=== PATIENT | male | born 1990 | race Hispanic/Latino ===

== ENCOUNTER 2017-10-19 08:00 | Outpatient (AMBR) | payer BC, SELFPAY ==
--- NOTE | 2017-10-09 12:24 | PTNOTE_ITS ---
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 Pt mention that his pain (8/10) is intermittent. Pt recent xray showed a mild form of scoliosis. 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 Objective T/S AROM: all motions are WFL but pain with end range extension and right side bend Scapula MMTs: grossly 3+/5 Palpation: TTP and increase paraspinal musculature T5 to T9 left side L/S AROM: all motions are WFL Assessment Pt demonstrate mid back pain with increase L paraspinal musculature tone secondary to overuse from work and ADLs. Pt will attempt physical therapy if pain persist Pt will be refer back to PCP Short Term and Penitentiary Goals 1) Decrease mid back pain to 2/10 in 6 wks to be able to work longer duration at work with less pain 2) Increase T/S core WNL in 6 wks to be able to perform lifting activities 3) Increase T/S AROM WNL in 6 wks to be able to perform chores with less limitation 4) Indep with HEP Treatment Plan 1) Manual Therapy 2) Therapeutic Exercises 3) Therapeutic Activities 4) Modalities (ice, heat, e-stim) Frequency and Duration 2 x wk for 6 wks Certification Dates: 10/09/17 to 01/09/18 Office Procedures PT Procedures PT Date of Service: 10/09/17 OP PT Eval Mod Complex 30 minutes: Yes
--- NOTE | 2017-10-12 14:57 | PT.ODAYNRPT ---
PT Outpatient Daily Note Date of Service: October 12, 2017 OP Daily Note Visit Reasons: low back pain Outpatient Physical Therapy Treatment Date: 10/12/17 Subjective: Pt's back feels okay. Pt mention that he still feels a little sore. Objective: Please see flow chart for list of ther ex performed Assessment: decrease mid back pain after STM and therapy session. Plan: Continue with PT Length of Time (minutes) of Treatment: 30 Minutes Office Procedures PT Procedures PT Date of Service: 10/09/17 OP PT Eval Mod Complex 30 minutes: Yes PT Procedures PT Date of Service: 10/12/17 Therapeutic Exercise 15 minutes: Yes Manual Poultry Hatchery Laborer 15 minutes: Yes
--- NOTE | 2017-10-16 09:03 | PT.ODAYNRPT ---
PT Outpatient Daily Note Date of Service: October 16, 2017 OP Daily Note Visit Reasons: low back pain Outpatient Physical Therapy Treatment Date: 10/16/17 Subjective: Pt's back felt a little better after last treatment session. Pt went back to work and seems to aggravate it again. Objective: Please see flow chart for list of ther ex performed Assessment: upon assessment; Pt's left paraspinal tension is less compared to previous visit. Pt's back pain decrease after therapy session. Plan: Continue with PT Length of Time (minutes) of Treatment: 30 Minutes Office Procedures PT Procedures PT Date of Service: 10/09/17 OP PT Eval Mod Complex 30 minutes: Yes PT Procedures PT Date of Service: 10/12/17 Therapeutic Exercise 15 minutes: Yes Manual Optical Technician 15 minutes: Yes PT Procedures PT Date of Service: 10/16/17 Therapeutic Exercise 15 minutes: Yes Manual Optical Technician 15 minutes: Yes
--- NOTE | 2017-10-19 08:51 | PTNOTE_ITS ---
PT Outpatient Daily Note Date of Service: October 19, 2017 OP Daily Note Visit Reasons: low back pain Outpatient Physical Therapy Treatment Date: 10/19/17 Subjective: Pt's back is feeling better. Pt working longer with less back pain. Pt notice that he slouch with sitting. Objective: Please see flow chart for list of ther ex performed Assessment: educated to not slouch and sit with more neutral spine to decrease paraspinal muscle tone. decrease tone noted upon assessment. Plan: Continue with PT Length of Time (minutes) of Treatment: 30 Minutes Office Procedures PT Procedures PT Date of Service: 10/09/17 OP PT Eval Mod Complex 30 minutes: Yes PT Procedures PT Date of Service: 10/12/17 Therapeutic Exercise 15 minutes: Yes Manual Life Skills Instructor 15 minutes: Yes PT Procedures PT Date of Service: 10/19/17 Therapeutic Exercise 15 minutes: Yes Manual Life Skills Instructor 15 minutes: Yes PT Procedures PT Date of Service: 10/16/17 Therapeutic Exercise 15 minutes: Yes Manual Life Skills Instructor 15 minutes: Yes
== END 2017-10-19 23:59 | disposition home or self-care (01) ==
PROVIDERS: Family Provider Surgery; PCP Chiropractor; Referring Provider Chiropractor; Visit Provider Family Medicine
DX: M54.5 Low back pain (principal); M54.6 Pain in thoracic spine; G89.29 Other chronic pain; M41.9 Scoliosis, unspecified
CPT/HCPCS: 97110; 97140; 97162

== ENCOUNTER 2017-11-23 09:00 | Outpatient (AMBR) | payer BC, SELFPAY ==
--- NOTE | 2017-11-20 09:29 | PT.ODAYNRPT ---
PT Outpatient Daily Note Date of Service: November 20, 2017 OP Daily Note Visit Reasons: low back Outpatient Physical Therapy Treatment Date: 11/20/17 Subjective: Pt mention that his back feels good. Pt working with less pain. Pt can now sleep on his back with less pain. Objective: Please see flow chart for list of ther ex performed Assessment: tolerate exercises performed with minimal back pain. review all theraband thoracic core exercises with good demonstration Plan: Continue with PT Length of Time (minutes) of Treatment: 45 Minutes Office Procedures PT Procedures PT Date of Service: 11/20/17 Therapeutic Exercise 45 minutes: Yes
--- NOTE | 2017-11-23 09:38 | PT.ODS1RPT ---
PT OP Progress/Discharge Note Date of Service: November 23, 2017 Progress Note/DC Note Progress Note/Discharge Note: DC Note Patient Information Visit Reasons: low back Medical Diagnosis: M54.5 Treatment Dx #1: Mid Back Pain Treatment Dx #2: Mid Back Pain Service Continue Service or Discharge: Discharge Discharge Date: 11/23/17 Status Subjective: Pt's back feels much better. Pt has been able to work longer with less mid back pain. Pt mention that he started his work out routine and it seems to also be helping his back ache. Pt feels comfortable with what was taught as exercises in therapy and feels comfortable being release from PT. Objective: T/S AROM: all motions are WNL Scapula MMTs: grossly 4/5 Palpation: no TTP paraspinal musculature L/S AROM: all motions are WNL Assessment: Pt demonstrate normal spinal mobility and thoracic core strength allowing him to resume ADLs, work duties, and recreational activities with minimal limitation. Pt will no longer benefit from physical therapy due to meeting all set goals. Pt was instructed on HEP last session to continue to manage his mid back pain. Pt performed all exercises safely, thank you for your referrals. Plan: D/C home with HEP and follow up with MD MENCHACA Office Procedures PT Procedures PT Date of Service: 11/23/17 Therapeutic Exercise 30 minutes: Yes PT Procedures PT Date of Service: 11/20/17 Therapeutic Exercise 45 minutes: Yes
== END 2017-12-19 23:59 | disposition home or self-care (01) ==
PROVIDERS: Family Provider Surgery; PCP Chiropractor; Referring Provider Chiropractor; Visit Provider Chiropractor
DX: M54.5 Low back pain (principal); M54.6 Pain in thoracic spine; G89.29 Other chronic pain
CPT/HCPCS: 97110

== ENCOUNTER 2019-12-15 09:35 | Outpatient (AMBR) | payer BC, SELFPAY ==
--- NOTE | 2019-11-25 10:58 | PT.OIERPT ---
PT OP Initial Eval Patient Information Visit Reasons: left shoulder Medical Diagnosis: M25.512 Treatment Dx #1: Left Shoulder Pain Treatment Dx #2: Left Shoulder Weakness Start of Care: 11/25/19 Date of Onset: 1 year ago Initial Assessment Subjective Pt is a 29 y/o male c/o chronic left shoulder pain (10/29) started 1 year ago. Pt denies of trauma or injury to the shoulder. No xray or MRI has been done thus far. Pt mention that he went down to [place] in January and had a MRI done which showed a inflammed supraspinatus . Pt also notice the shoulder dropping with excessive popping/clicking. Pt has limitation with chores, work duties, self care, overhead motions, lifting, taking care of his baby, recreational activities, and reaching behind his back. Objective C/S AROM: all motions are WFL with stretching pain right side bending and right rotation Left Shoulder AROM: all motions are WFL with end range pain in flexion and abduction Left Shoulder MMTs Flexors: 4-/5 Abductors: 3+/5 Internal Rotators: 4-/5 External Rotators: 3/5 Left Scapula MMTs: grossly 3-/5 Palpation: TTP long head of biceps, supraspinatus muscle belly, superior and mid portion of upper trape Special Test (+) grind test (+) palmer's test Assessment Pt demonstrate left shoulder pain and instability consistent with possible labral lesion leading to decline function. Pt will attempt physical therapy if pain persist Pt will be refer back to provider for further consultation. Short Term and Retirement Goals 1) Increase left shoulder AROM WNL in 6 wks to be able to perform overhead motions 2) Increase left shoulder MMTs grossly to 4/5 in 6 wks to be able to perform work duties 3) Decrease shoulder pain to 2/10 in 6 wks to be able to perform lifting activities 4) Increase left scapula MMTs grossly to 4-/5 in 6 wks to be able to perform chores 5) Indep with HEP Treatment Plan 1) Manual Therapy 2) Therapeutic Activities 3) Therapeutic Exercises 4) Modalities (ice, heat) Frequency and Duration 2 x wk for 6 wks Certification Dates: 11/25/19 to 02/25/20 Office Procedures PT Procedures PT Date of Service: 10/06/20 OP PT Eval Mod Complex 30 minutes: Yes
--- NOTE | 2019-11-28 10:02 | PT.ODAYNRPT ---
PT Outpatient Daily Note Date of Service: 11/28/19 OP Daily Note Visit Reasons: left shoulder Outpatient Physical Therapy Treatment Date: 11/28/19 Subjective: Pt's shoulder is the same. Pt feels that his whole left arm is . Pt further mention that neck feels unstable. Pt saw his PCP yesterday and plans on getting a shoulder MRI Objective: Please see flow chart for list of ther ex performed Assessment: Pt educated that most likely neck pain is secondary pain to the shoulder due to compensatory movement. Pt performed all exercises with minimal difficulty, slight pain with punches and shoulder ER. post ice help decrease pain and soreness Plan: Continue with PT Length of Time (minutes) of Treatment: 30 Minutes Office Procedures PT Procedures PT Date of Service: 11/25/19 OP PT Eval Mod Complex 30 minutes: Yes PT Procedures PT Date of Service: 11/28/19 Therapeutic Exercise 30 minutes: Yes
--- NOTE | 2019-12-02 12:53 | PT.ODAYNRPT ---
PT Outpatient Daily Note Date of Service: 12/02/19 OP Daily Note Visit Reasons: left shoulder Outpatient Physical Therapy Treatment Date: 12/02/19 Subjective: Pt's shoulder is better. Pt is taking valium and makes him feel drunk. Pt is taking meds 3x day and feels that it's helping. Pt is concern if he stop taking meds his shoulder pain may hurt. Pt's also been off work which help the shoulder pain Objective: Please see flow chart for list of ther ex performed Assessment: Pt instructed to consult with pcp regarding meds and appropriate intake. Pt tolerate all exercises performed today Plan: Continue with PT Length of Time (minutes) of Treatment: 30 Minutes Office Procedures PT Procedures PT Date of Service: 11/25/19 OP PT Eval Mod Complex 30 minutes: Yes PT Procedures PT Date of Service: 11/28/19 Therapeutic Exercise 30 minutes: Yes PT Procedures PT Date of Service: 12/02/19 Therapeutic Exercise 30 minutes: Yes
--- NOTE | 2019-12-05 10:19 | PT.ODAYNRPT ---
PT Outpatient Daily Note Date of Service: 12/05/19 OP Daily Note Visit Reasons: left shoulder Outpatient Physical Therapy Treatment Date: 12/05/19 Subjective: Pt's shoulder is a little better. Pt saw his provider yesterday and extended work for another 4 weeks. Pt mention that provider doesn't want to order an MRI due to him feeling better. Pt is concerns about work and is not ready to return Objective: Please see flow chart for list of ther ex performed Assessment: tolerate exercises with minimal pain; cues to rest as needed after each session. Post ice help decrease soreness and pain Plan: Continue with PT Length of Time (minutes) of Treatment: 30 Minutes Office Procedures PT Procedures PT Date of Service: 11/25/19 OP PT Eval Mod Complex 30 minutes: Yes PT Procedures PT Date of Service: 11/28/19 Therapeutic Exercise 30 minutes: Yes PT Procedures PT Date of Service: 12/02/19 Therapeutic Exercise 30 minutes: Yes PT Procedures PT Date of Service: 12/05/19 Therapeutic Exercise 30 minutes: Yes
--- NOTE | 2019-12-09 14:34 | PT.ODAYNRPT ---
PT Outpatient Daily Note Date of Service: 12/09/2019 OP Daily Note Visit Reasons: left shoulder Outpatient Physical Therapy Treatment Date: 12/09/19 Subjective: pt states his shoulder is feeling better. Objective: see flow sheet. Assessment: pt demonstrates good understanding of the exercises as he is able to control each rep with having good posture. he did not need cuing to correct any exercise. he denied increase in pain. no complaints during or after treatment. no compensations noted during any exercises as he is fully engaging the shoulder joint. ice pack pos ther ex in supine per pt request. Plan: continue POC per PT. Length of Time (minutes) of Treatment: 30 Minutes Office Procedures PT Procedures PT Date of Service: 11/25/19 OP PT Eval Mod Complex 30 minutes: Yes PT Procedures PT Date of Service: 12/09/19 Therapeutic Exercise 30 minutes: Yes PT Procedures PT Date of Service: 11/28/19 Therapeutic Exercise 30 minutes: Yes PT Procedures PT Date of Service: 12/02/19 Therapeutic Exercise 30 minutes: Yes PT Procedures PT Date of Service: 12/05/19 Therapeutic Exercise 30 minutes: Yes
--- NOTE | 2019-12-15 09:51 | PT.ODS1RPT ---
PT OP Progress/Discharge Note Date of Service: 12/15/19 Progress Note/DC Note Progress Note/Discharge Note: DC Note Patient Information Visit Reasons: left shoulder Medical Diagnosis: M25.512 Treatment Dx #1: Left Shoulder Pain Service Continue Service or Discharge: Discharge Discharge Date: 12/15/19 Status Subjective: Pt stated that his left shoulder was doing well past few sessions, however, he's unsure if he slept wrong due to now it's hurting again. Pt continues to report of intermittent popping/clicking with pain (08/28). Pt has limitation with excessive overhead motions, taking care of his baby, lifting, reaching behind his back, and recreational activities. Pt further mention that he's been off work for 6 weeks and still his shoulder is not better which he is getting concern. Pt will follow up with provider after today's session. Objective: Left Shoulder AROM: all motions are WNL with pain at end range flexion and abduction Left Shoulder MMTs: grossly 4-/5 Left Scapula MMTs: grossly 3+/5 Palpation: TTP long head of biceps and supraspinatus muscle belly Special Test (+) grind test (+) active palmer's test Assessment: Pt demonstrate functional ROM and strength, however, continues to report of anterior and and anterior lateral shoulder pain leading to difficulty with ADLs. Pt will no longer benefit from physical therapy due to plateau towards goals. Pt was instructed on HEP last session and advised to follow up with provider for further consultation. Pt performed all HEP safely on his last session, thank you for your referrals. Plan: D/C home with HEP and follow up with provider Office Procedures PT Procedures PT Date of Service: 11/25/19 OP PT Eval Mod Complex 30 minutes: Yes PT Procedures PT Date of Service: 12/09/19 Therapeutic Exercise 30 minutes: Yes PT Procedures PT Date of Service: 12/15/19 Therapeutic Exercise 15 minutes: Yes Self Care/Home Mgmt 15 minutes: Yes PT Procedures PT Date of Service: 11/28/19 Therapeutic Exercise 30 minutes: Yes PT Procedures PT Date of Service: 12/02/19 Therapeutic Exercise 30 minutes: Yes PT Procedures PT Date of Service: 12/05/19 Therapeutic Exercise 30 minutes: Yes
== END 2019-12-15 09:48 | disposition home or self-care (01) ==
PROVIDERS: PCP Nurse Practitioner Family; Referring Provider Nurse Practitioner Family; Visit Provider Nurse Practitioner Family
DX: M25.512 Pain in left shoulder (principal); R53.1 Weakness; G89.29 Other chronic pain
CPT/HCPCS: 97110; 97162; 97535